=== PATIENT | female | born 1935 | race Caucasian/White ===

== ENCOUNTER 2016-11-21 09:09 | Day surgery (SDC) | payer MEDICARE, OTHER ==
[~2016-11-21 09:09] MED LIST: ADULT ASPIRIN81 MG PO; ALLOPURINOL100 M1 PO; ALLOPURINOL100 MG PO; ARANESP25 MCG/1 M IJ; ASPIR-LOW81 M1 PO; ATORVASTATIN CA40 MG PO; CALCITRIOL0.25 MCG PO; ISOSORBIDE MONO60 M1 PO; ISOSORBIDE MONO60 M3 PO; LASIX40 MG PO; LEVEMIR100 U/ML SQ; LEVEMIR100 UNITS/ SC; LEVOTHYROXINE100 MCG PO; LEVOXYL100 MC2 PO; LIPITOR40 M1 PO; METOPROLOL TART25 M1 PO; METOPROLOL TART50 MG PO; NITROGLYCERIN0.4 M2 SL; NORCO 5-325 TA1 EACH PO; NORVASC5 M1 PO; NOVOLOG100 U/M SQ; NOVOLOG100 UNITS/ SC; OMEPRAZOLE10 M1 PO; OMEPRAZOLE20 M3 PO; PRILOSEC10 M2 PO; SERTRALINE HCL100 M1 PO; SERTRALINE HCL100 M5 PO; TRICOR145 M1 PO; TRICOR145 M2 PO; TRIPHROCAPS SOFT1 M1 PO; TYLENOL EXTRA500 M1 PO; VITAMIN D250000 UNI1 PO; VITAMIN D50000 UNIT PO; ZOLOFT100 M1 PO
== END 2016-11-21 11:58 ==
LOC: RADSP 09:09 → SHSC 09:10
PROC: B51WYZZ Fluoroscopy of Dialysis Shunt/Fistula using Other Contrast (ICD-10-PCS; principal; 2016-11-21)
PROC: B31JYZZ Fluoroscopy of Left Upper Extremity Arteries using Other Contrast (ICD-10-PCS; 2016-11-21)
PROC: 037C3ZZ Dilation of Left Radial Artery, Percutaneous Approach (ICD-10-PCS; 2016-11-21)
DX: T82.858A Stenosis of other vascular prosthetic devices, implants and grafts, initial encounter (principal); I12.0 Hypertensive chronic kidney disease with stage 5 chronic kidney disease or end stage renal disease; E11.22 Type 2 diabetes mellitus with diabetic chronic kidney disease; N18.6 End stage renal disease; Z79.4 Long term (current) use of insulin; Z79.899 Other long term (current) drug therapy; Z87.891 Personal history of nicotine dependence; Z90.49 Acquired absence of other specified parts of digestive tract; Z90.710 Acquired absence of both cervix and uterus; Z98.890 Other specified postprocedural states; Z99.2 Dependence on renal dialysis
CPT/HCPCS: C1725; C1769; C1887; J1644; J2250; J3010; Q9967